=== PATIENT | male | born 1995 | race African-American/Black ===

== ENCOUNTER 2023-12-15 13:02 | Outpatient (REF) | payer MEDICAID, SELFPAY ==
[2023-12-15 13:35] VITALS: BP 130/81; PULSE 76; RESP 17; TEMP 36.6; O2SAT 97; BMI 28.0
== END 2023-12-15 13:03 | disposition home or self-care (01) ==
LOC: HO.MS 13:02
PROVIDERS: Visit Provider Ophthalmology
PROC: (CPT 67800; principal; 2023-12-15 14:30)
DX: H00.14 Chalazion left upper eyelid (principal)
CPT/HCPCS: 67800